=== PATIENT | female | born 1990 | race American Indian/Alaskan Native ===

== ENCOUNTER 2019-12-04 21:06 | Emergency (ER) | payer OTHER ==
[2019-12-04 21:12] VITALS: BP 133/75
[2019-12-04 21:43] LABS: Basophils % (Auto) 0.9 % (0.0-1.8); Eosinophils # (Auto) 0.2 K/mm3 (0.0-0.4); Hematocrit 37.6 % (30.3-42.9); Lymphocytes # (Auto) 1.7 K/mm3 (1.2-5.4); Mean Corpuscular HGB Conc 32 % (30-34); Mean Corpuscular Volume 82 fl (79-97); Monocytes # (Auto) 0.7 K/mm3 (0.0-0.8); Monocytes % (Auto) 13.3 % (0.0-7.3); Platelet Count 202 K/mm3 (140-440); Red Blood Count 4.59 M/mm3 (3.65-5.03); Red Cell Distribution Width 14.2 % (13.2-15.2)
[2019-12-04 22:30] LABS: Bacteria,Urine 1+ /HPF (Negative); Bilirubin,Urine NEG (Negative); Blood,Urine LG (Negative); Calcium Oxalate Crystals,Urine 3+; Color,Urine Yellow (Yellow); Mucus,Urine 1+ /HPF; Protein,Urine <15 mg/dL mg/dL (Negative); Urobilinogen,Urine < 2.0 mg/dL (<2.0)
--- NOTE | 2019-12-05 00:30 | Ultrasound Report ---
TRANSABDOMINAL AND TRANSVAGINAL OB PELVIC ULTRASOUND INDICATION / CLINICAL INFORMATION: Moderate vaginal bleeding. COMPARISON: None available. FINDINGS: TRANSABDOMINAL: The uterus measures 6.7 x 3.0 x 4.8 cm. The endometrial stripe measures 7.7 mm AP. Th e endometrial cavity is empty. Neither ovary is seen. There is no evidence of adnexal mass or free fl uid. The urinary bladder is collapsed and not well seen. TRANSVAGINAL: The uterus measures 6.5 x 2.8 x 5.0 cm. The endometrial stripe measures 4.9 mm AP. I do not identify an intrauterine gestational sac. No fibroids are seen. The right ovary measures 2.9 x 1.4 x 2.0 cm and the left ovary 1.9 x 1.4 x 1.8 cm. There is normal bl ood flow to both ovaries on Doppler exam. I see no evidence of adnexal mass or free fluid. IMPRESSION: No evidence of intrauterine or extrauterine . Signer Name: Adam Staples MD Signed: 12/05/2019 12:25 AM Workstation Name: [id number]
--- NOTE | 2019-12-05 00:47 | Emergency Department Report ---
ED Female HPI - General Chief complaint: Vaginal Bleeding Stated complaint: ABD PAIN/VAGINAL BLEEDING/ 3WKS Source: patient Mode of arrival: Ambulatory Limitations: No Limitations - History of Present Illness Initial comments: Patient is a A0 29-year-old -Tajik female with no past medical history who is approximately 5 weeks gestation and who presents to the ED with complaint of acute onset heavy vaginal bleeding for the last 2 days after having sexual intercourse. Patient states that about a week ago she tested positive for and it was confirmed with hCG quant at the [facility] physician's office. Patient states that her hCG quant at that time was 39.0. Patient states that she was supposed to go back to the [facility] physician's office in the next few days for further tests. Patient states that her vaginal bleeding started with sexual intercourse 2 days ago and has been persistent and heavy like a menstrual cycle. Patient denies abdominal pain, nausea, vomiting, dizziness, syncope, chest pain, shortness of breath, fever, chills, cough, dysuria, urinary frequency and urgency and headache. MD Complaint: vaginal bleeding, other (possibly ) -: Sudden, days(s) (2) Location: suprapubic, other (vaginal) Radiation: non-radiating Severity: moderate Severity scale (0 -10): 5 Quality: cramping, dull Consistency: constant Improves with: none Worsens with: none Are you Now?: Yes Associated Symptoms: denies other symptoms, vaginal bleeding. denies: abdominal pain, nausea/vomiting, headaches, loss of appetite, dysuria, hematuria, rash, seizure, shortness of breath, syncope, weakness, other - Related Data Sexually active: Yes : 1 Para: 0 A: 0 Previous Rx's Medication Instructions Recorded Last Taken Type HYDROcodone/APAP 5-325 [Ramsay 1 each PO Q6HR PRN #15 tablet 06/24/16 Unknown Rx 5/325] Ibuprofen [Motrin] 600 mg PO Q8H PRN #30 tablet 06/24/16 Unknown Rx Neomy/Baci/Polymyx Oint [Triple 15 gm TP BID #1 oint 06/24/16 Unknown Rx Antibiotic] Allergies Allergy/AdvReac Type Severity Reaction Status Date / Time Latex, Natural Rubber Allergy Unknown Verified 06/24/16 04:45 ED Review of Systems ROS: Stated complaint: ABD PAIN/VAGINAL BLEEDING/ 3WKS Other details as noted in HPI Constitutional: denies: chills, fever Eyes: denies: eye pain, eye discharge, vision change ENT: denies: ear pain, throat pain Respiratory: denies: cough, shortness of breath, wheezing Cardiovascular: denies: chest pain, palpitations Endocrine: no symptoms reported Gastrointestinal: denies: abdominal pain, nausea, vomiting, diarrhea Genitourinary: abnormal menses (Vaginal bleeding). denies: urgency, dysuria, discharge Musculoskeletal: denies: back pain, joint swelling, arthralgia Skin: denies: rash, lesions Neurological: denies: headache, weakness, paresthesias Psychiatric: denies: anxiety, depression Hematological/Lymphatic: denies: easy bleeding, easy bruising ED Past Medical Hx - Past Medical History Previous Medical History?: No Hx Hypertension: No Hx CVA: No Hx Heart Attack/AMI: No Hx Congestive Heart Failure: No Hx Diabetes: No Hx Deep Vein Thrombosis: No Hx Pulmonary Embolism: No Hx GERD: No Hx Liver Disease: No Hx Renal Disease: No Hx Sickle Cell Disease: No Hx Arthritis: No Hx Headaches / Migraines: No Hx Seizures: No Hx Kidney Stones: No Hx Psychiatric Treatment: No Hx Asthma: No Hx COPD: No Hx Tuberculosis: No Hx Dementia: No Hx HIV: No - Surgical History Past Surgical History?: No Hx Coronary Stent: No Hx Open Heart Surgery: No Hx Pacemaker: No Hx Internal Defibrillator: No Hx Cholecystectomy: No Hx Appendectomy: No Hx Breast Surgery: No - Social History Smoking Status: Never Smoker Substance Use Type: None - Medications Home Medications: Home Medications Medication Instructions Recorded Confirmed Last Taken Type HYDROcodone/APAP 5-325 [Ramsay 1 each PO Q6HR PRN #15 tablet 06/24/16 Unknown Rx 5/325] Ibuprofen [Motrin] 600 mg PO Q8H PRN #30 tablet 06/24/16 Unknown Rx Neomy/Baci/Polymyx Oint [Triple 15 gm TP BID #1 oint 06/24/16 Unknown Rx Antibiotic] ED Physical Exam - General Limitations: No Limitations General appearance: alert, in no apparent distress - Head Head exam: Present: atraumatic, normocephalic, normal inspection - Eye Eye exam: Present: normal appearance, PERRL, EOMI Pupils: Present: normal accommodation - ENT ENT exam: Present: normal exam, normal orophraynx, mucous membranes moist, TM's normal bilaterally, normal external ear exam - Neck Neck exam: Present: normal inspection, full ROM - Respiratory Respiratory exam: Present: normal lung sounds bilaterally. Absent: respiratory distress, wheezes, rales, stridor, chest wall tenderness, accessory muscle use, decreased breath sounds - Cardiovascular Cardiovascular Exam: Present: regular rate, normal rhythm, normal heart sounds. Absent: systolic murmur, diastolic murmur, rubs, gallop - GI/Abdominal GI/Abdominal exam: Present: soft, normal bowel sounds. Absent: tenderness, guarding, rebound, hyperactive bowel sounds, hypoactive bowel sounds, organomegaly - Bi-manual exam: Present: other (Pelvic exam deferred) - Extremities Exam Extremities exam: Present: normal inspection, normal capillary refill - Back Exam Back exam: Present: normal inspection, full ROM. Absent: tenderness, CVA tenderness (R), muscle spasm, paraspinal tenderness, vertebral tenderness - Neurological Exam Neurological exam: Present: alert, oriented X3, CN II-XII intact, normal gait, reflexes normal - Psychiatric Psychiatric exam: Present: normal affect, normal mood - Skin Skin exam: Present: warm, dry, intact, normal color. Absent: rash ED Course Vital Signs 12/04/19 21:10 Temperature 97.9 F Pulse Rate 90 Respiratory 18 Rate Blood Pressure 133/75 O2 Sat by Pulse 99 Oximetry ED Medical Decision Making - Lab Data Result diagrams: 12/04/19 21:30 - Radiology Data Radiology results: report reviewed, image reviewed Findings [facility] [address] [place] [address] Ultrasound Report Signed Patient: IRASEMA DRUMMOND MR# : [id number] : 1990 Acct:[id number] Age/Sex: 29 / F ADM Date: 12/04/19 Loc: ED Attending Dr: Ordering Physician: CARTER ALEJANDRO MD Date of Service: 12/04/19 Procedure(s): US OB transvaginal Accession Number(s): [id number] cc: CARTER ALEJANDRO MD TRANSABDOMINAL AND TRANSVAGINAL OB PELVIC ULTRASOUND INDICATION / CLINICAL INFORMATION: Moderate vaginal bleeding. COMPARISON: None available. FINDINGS: TRANSABDOMINAL: The uterus measures 6.7 x 3.0 x 4.8 cm. The endometrial stripe m easures 7.7 mm AP. The endometrial cavity is empty. Neither ovary is seen. There is no evidence of adnexal mass or free fluid. The urinary bladder is collapsed and not well seen. TRANSVAGINAL: The uterus measures 6.5 x 2.8 x 5.0 cm. The endometrial stripe measures 4.9 mm AP. I do not identify an intrauterine gestational sac. No fibroids are seen. The right ovary measures 2.9 x 1.4 x 2.0 cm and the left ovary 1.9 x 1.4 x 1.8 cm. There is normal blood flow to both ovaries on Doppler exam. I see no evidence of adnexal mass or free fluid. IMPRESSION: No evidence of intrauterine or extrauterine . Signer Name: Adam Staples MD Signed: 12/05/2019 12:25 AM Workstation Name: [id number] Transcribed By: RT Dictated By: Adam Staples MD Electronically Authenticated By: Adam Staples MD Signed Date/Time: 12/05/19 002 DD/ 0023 TD/TT: - Medical Decision Making This is a A0 29-year-old -Taj[place] female with no past medical history who is approximately 5 weeks gestation and who presents to the ED with complaint of acute onset heavy vaginal bleeding for the last 2 days after having sexual intercourse. Patient states that about a week ago she tested positive for and it was confirmed with hCG quant at the [facility] physician's office. Patient states that her hCG quant at that time was 39.0. Patient states that she was supposed to go back to the [facility] physician's office in the next few days for further tests. Patient states that her vaginal bleeding started with sexual intercourse 2 days ago and has been persistent and heavy like a menstrual cycle. In the ED, patient is alert and oriented x3 and is not in distress. Lab test results were reviewed and are all nonactionable, and the hCG quant is 4.52. Urinalysis showed significant blood in urine with no sign of infection. Transvaginal ultrasound showed no evidence of intrauterine or extrauterine . On reevaluation, patient stated that her bleeding is well controlled and just has mild pink discharge. Patient was discharged home and advised to follow-up with her [facility] physician in 7 to 10 days for reevaluation or return to the ED immediately if symptoms get worse. - Differential Diagnosis Complete miscarriage; UTI; Ovarian cyst; Fibroids Critical care attestation.: If time is entered above; I have spent that time in minutes in the direct care of this critically ill patient, excluding procedure time. ED Disposition Clinical Impression: Complete miscarriage, Dysfunctional uterine hemorrhage Disposition: TO HOME OR SELFCARE Is pt being admited?: No Does the pt Need Aspirin: No Condition: Stable Instructions: Dysfunctional Uterine Bleeding (ED), Spontaneous Miscarriage (ED) Additional Instructions: Maintain a complete pelvic rest with no heavy lifting, physical or strenuous and sexual activity. Follow-up with your [facility] [facility] physician in 5 to 7 days for reevaluation. Return to the ED immediately if symptoms get worse. Referrals: JORDI RILEY MD [Staff Physician] - 3-5 Days Time of Disposition: 00:51 Print Language: IRISH
== END 2019-12-05 01:05 | disposition home or self-care (01) ==
LOC: ED 21:06
DX: O03.9 Complete or unspecified spontaneous abortion without complication (principal); Z3A.01 Less than 8 weeks gestation of pregnancy; O26.891 Other specified pregnancy related conditions, first trimester; N93.8 Other specified abnormal uterine and vaginal bleeding
CPT/HCPCS: 36415; 76801; 76817; 81001; 84702; 85025; 86900; 86901; 99284